=== PATIENT | female | born 1980 | race African-American/Black ===

== ENCOUNTER 2019-02-25 08:24 | Emergency (ER) | payer BC ==
[~2019-02-25] VITALS: Ht 152.4 cm; Wt 52.2 kg
[2019-02-25 08:30] VITALS: BP 133/79
[2019-02-25] MEDS ORDERED: CYCL5TAB PO (08:45)
--- NOTE | 2019-02-25 08:45 | PHYS DOC ---
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 Past Surgical History: , Other Additional Past Surgical Histo: Dental. Alcohol Use: Sober Drug Use: None Adult General Chief Complaint Chief Complaint: Neck Pain HPI HPI Patient is a 39 year old female presents to the ED complaining of right shoulder and low back pain 2 days ago. 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 Describes the pain as sharp. Rates the pain as 7 out of 10. States the pain is worse with range of motion and improved with rest. Associated symptoms include right shoulder pain that is worse with ROM. Denies bowel/bladder changes, saddle anesthesia, chest pain, shortness of breath, traumatic injury, fever, decreased range of motion, nausea/vomiting, head/neck injury or dizziness. Review of Systems Review of Systems Constitutional: Denies fever or chills [] Respiratory: Denies cough or shortness of breath [] Cardiovascular: No additional information not addressed in HPI [] GI: Denies abdominal pain, nausea, vomiting, bloody stools or diarrhea [] : Denies dysuria or hematuria [] Musculoskeletal: Complains of back and shoulder pain. Denies joint pain [] Integument: Denies rash or skin lesions [] Neurologic: Denies headache, focal weakness or sensory changes [] All other systems were reviewed and found to be within normal limits, except as documented in this note. Allergies Allergies Allergies Coded Allergies Type Severity Reaction Last Updated Verified No Known Drug Allergies 10/21/14 No Physical Exam Physical Exam Constitutional: Well developed, well nourished, no acute distress, non-toxic appearance. [] HENT: Normocephalic, atraumatic. Eyes: PERRLA, EOMI, conjunctiva normal, no discharge. [] Neck: Normal range of motion, no tenderness, supple, no stridor. [] Cardiovascular:Heart rate regular rhythm, no murmur [] Lungs & Thorax: Bilateral breath sounds clear to auscultation [] Abdomen: Bowel sounds normal, soft, no tenderness, no masses, no pulsatile masses. [] Skin: Warm, dry, no erythema, no rash. [] Back: Mild right lateral lower muscle spasm. FROM. NV intact. No overlying skin changes. negative SLR. No bony tenderness. Negative empty can test, yergesons, or speeds. no CVA tenderness. [] Extremities: No tenderness, no cyanosis, no clubbing, ROM intact, no edema. [] Neurologic: Alert and oriented X 3, normal motor function, normal sensory function, no focal deficits noted. [] Psychologic: Affect normal, judgement normal, mood normal. [] Current Patient Data Vital Signs Vital Signs Date Time Temp Pulse Resp B/P (MAP) Pulse Ox O2 Delivery O2 Flow Rate FiO2 02/25/19 08:30 98.1 89 18 133/79 (97) 99 Room Air 98.1 EKG EKG [] Radiology/Procedures Radiology/Procedures [] Course & Med Decision Making Course & Med Decision Making Pertinent Labs and Imaging studies reviewed. (See chart for details) []No bony tenderness. No imaging warranted. Patient has full range of motion. No bowel/bladder changes or saddle anesthesia. Patient able to ambulate without assistance. Will treat with muscle relaxers outpatient. Discussed symptomatic treatment and follow-up with PCP this week if symptoms persist. Provided contact information/education. Discussed reasons to return to the ED. Patient understands and agrees with plan. Dragon Disclaimer Dragon Disclaimer This electronic medical record was generated, in whole or in part, using a voice recognition dictation system. Departure Departure Impression: Primary Impression: Muscle strain Additional Impression: Back pain Disposition: 01 HOME, SELF-CARE Condition: STABLE Referrals: GAYLE BARAKAT MD (PCP) Patient Instructions: Back Pain, Adult, Muscle Strain Scripts Cyclobenzaprine Hcl (CYCLOBENZAPRINE HCL) 5 Mg Tablet 1 TAB PO TID for 5 Days, #15 TAB Prov: HANNAH OCAMPO 02/25/19 Problem Qualifiers HANNAH OCAMPO Feb 25, 2019 08:45
== END 2019-02-25 09:04 | disposition home or self-care (01) ==
LOC: ER 08:24
DX: S39.012A Strain of muscle, fascia and tendon of lower back, initial encounter (principal); M25.511 Pain in right shoulder; Z98.890 Other specified postprocedural states; X50.9XXA Other and unspecified overexertion or strenuous movements or postures, initial encounter; Y93.89 Activity, other specified; Y92.63 Factory as the place of occurrence of the external cause; Y99.0 Civilian activity done for income or pay
CPT/HCPCS: 99283

== ENCOUNTER 2019-09-02 15:51 | Emergency (ER) | payer BC ==
[~2019-09-02] VITALS: Ht 152.4 cm; Wt 52.2 kg
[~2019-09-02 15:51] MED LIST: CYCL5TAB PO
[2019-09-02] MEDS ORDERED: NAPROXEN 500 MG TABLET PO STA (18:00)
[2019-09-02 18:11] LABS: CLARITY,URINE CLOUDY; COLOR,URINE ORANGE
[2019-09-02 18:14] LABS: BACTERIA,URINE FEW /HPF (0-FEW); RBC,URINE >40 /HPF (0-2); WBC,URINE >40 /HPF (0-4)
[2019-09-02] MEDS ORDERED: CYCLOBENZAPRINE 10 MG TABLET. PO ONE (18:15)
[2019-09-02] MEDS ORDERED: HYDROcodone/APAP 5/325MG 1 TAB TABLET PO ONE (18:15)
[2019-09-02] MEDS ORDERED: CEPH500T PO (18:57)
[2019-09-02] MEDS ORDERED: TRAM50TA PO (18:57)
--- NOTE | 2019-09-02 18:57 | PHYS DOC ---
Past Medical History Past Medical History: No Pertinent History, Other Additional Past Medical Histor: Poor Dentation, Hx of Meth use and stopped 2012. Past Surgical History: , Tubal ligation, Other Additional Past Surgical Histo: Dental. Alcohol Use: Sober Drug Use: None Adult General Chief Complaint Chief Complaint: PELVIC PAIN HPI HPI Patient is a 39 year old female who presents with dysuria and right flank pain that began yesterday. Patient states she is taking Pyridium with no relief. Denies any fever, nausea, vomiting. She states she has some periumbilical cramping. She states she has a UTI. Review of Systems Review of Systems Constitutional: Denies fever or chills [] Eyes: Denies change in visual acuity, redness, or eye pain [] HENT: Denies nasal congestion or sore throat [] Respiratory: Denies cough or shortness of breath [] Cardiovascular: No additional information not addressed in HPI [] GI: Reports periumbilical abdominal pain, denies nausea, vomiting, bloody stools or diarrhea [] : Reports dysuria, denies hematuria [] Musculoskeletal: Denies back pain or joint pain [] Integument: Denies rash or skin lesions [] Neurologic: Denies headache, focal weakness or sensory changes [] All other systems were reviewed and found to be within normal limits, except as documented in this note. Current Medications Current Medications Current Medications Medications (Trade) Dose Ordered Sig/Grecia Start Time Stop Time Status Last Admin Dose Admin Acetaminophen/ Hydrocodone Bitart (Lortab 5/325) 1 tab 1X ONCE 09/02/19 18:15 09/02/19 18:16 DC 09/02/19 18:32 1 TAB Cyclobenzaprine HCl (Flexeril) 10 mg 1X ONCE 09/02/19 18:15 09/02/19 18:16 DC 09/02/19 18:32 10 MG Naproxen (Naprosyn) 500 mg 1X STAT 09/02/19 18:00 09/02/19 18:03 DC 09/02/19 18:33 500 MG Allergies Allergies Allergies Coded Allergies Type Severity Reaction Last Updated Verified No Known Drug Allergies 10/21/14 No Physical Exam Physical Exam Constitutional: Well developed, well nourished, no acute distress, non-toxic appearance. [] HENT: Normocephalic, atraumatic, bilateral external ears normal, oropharynx moist, no oral exudates, nose normal. [] Eyes: PERRLA, EOMI, conjunctiva normal, no discharge. [] Neck: Normal range of motion, no tenderness, supple, no stridor. [] Cardiovascular:Heart rate regular rhythm, no murmur [] Lungs & Thorax: Bilateral breath sounds clear to auscultation [] Abdomen: Bowel sounds normal, soft, no tenderness, no masses, no pulsatile masses. [] Skin: Warm, dry, no erythema, no rash. [] Back: No tenderness, no CVA tenderness. [] Extremities: No tenderness, no cyanosis, no clubbing, ROM intact, no edema. [] Neurologic: Alert and oriented X 3, normal motor function, normal sensory function, no focal deficits noted. [] Psychologic: Affect normal, judgement normal, mood normal. [] Current Patient Data Vital Signs Vital Signs Date Time Temp Pulse Resp B/P (MAP) Pulse Ox O2 Delivery O2 Flow Rate FiO2 09/02/19 18:32 20 99 Room Air 09/02/19 17:45 98.1 82 127/75 (92) 98.1 Lab Values Laboratory Tests Test 09/02/19 17:47 Urine Collection Type Void Urine Color [place] Urine Clarity Cloudy Urine pH Urine Specific [place] Urine Protein mg/dL (NEG-TRACE) Urine Glucose (UA) mg/dL (NEG) Urine Ketones (Stick) mg/dL (NEG) Urine Blood (NEG) Urine Nitrite (NEG) Urine Bilirubin (NEG) Urine Urobilinogen Dipstick mg/dL (0.2 mg/dL) Urine Leukocyte Esterase (NEG) Urine RBC >40 /HPF (0-2) Urine WBC >40 /HPF (0-4) Urine Bacteria Few /HPF (0-FEW) Urine Mucus Mod /LPF EKG EKG [] Radiology/Procedures Radiology/Procedures [] Course & Med Decision Making Course & Med Decision Making Pertinent Labs and Imaging studies reviewed. (See chart for details) This is a 39-year-old female patient presenting to the ED today with UTI symptoms, she is unfortunately on Pyridium, lab unable to interpret her urine, noted to have WBCs in urine. We will treat her for UTI. Given prescription for cephalexin. Instructed to push fluids and continue taking Pyridium as needed. Follow-up with urologist a PCP in a week. [place] Disclaimer Dragon Disclaimer This electronic medical record was generated, in whole or in part, using a voice recognition dictation system. Departure Departure Impression: Primary Impression: UTI (urinary tract infection) Disposition: 01 HOME, SELF-CARE Condition: STABLE Referrals: GAYLE BARAKAT MD (PCP) follow up in one week Patient Instructions: Urinary Tract Infection Additional Instructions: You were evaluated in the emergency room and treated for urinary tract infection, complete your antibiotics. Follow-up with your doctor in one week or the provided urologist. Push fluids. Scripts Tramadol Hcl (TRAMADOL HCL) 50 Mg Tablet 50 MG PO Q6HRS PRN for PAIN, #14 TAB Prov: ISIDRA CHUN APRN 09/02/19 Cephalexin (CEPHALEXIN) 500 Mg Tablet 1 TAB PO BID, #14 TAB Prov: ISIDRA CHUN APRN 09/02/19 Problem Qualifiers Primary Impression: UTI (urinary tract infection) Urinary tract infection type: site unspecified Hematuria presence: without hematuria Qualified Codes: N39.0 - Urinary tract infection, site not specified ISIDRA CHUN APRN Sep 02, 2019 18:57
[2019-09-02 19:17] VITALS: BP 120/68
== END 2019-09-02 19:18 | disposition home or self-care (01) ==
LOC: ER 15:51
DX: N39.0 Urinary tract infection, site not specified (principal); Z98.51 Tubal ligation status; Z98.890 Other specified postprocedural states
CPT/HCPCS: 81001; 99284